=== PATIENT | female | born 1965 | race African-American/Black ===

== ENCOUNTER 2017-04-02 12:46 | Emergency (ER) | payer BC ==
[2017-04-02 12:53] VITALS: BP 144/93
[2017-04-02] MEDS ORDERED: CLINDAMYCIN HCL 150 MG CAPSULE PO ONE (13:11)
[2017-04-02] MEDS ORDERED: LIDOCAINE 2% VISCOUS SOLN 20 ML UDCUP PO ONE (13:11)
--- NOTE | 2017-04-02 13:20 | ER Document Report ---
ED Oral Problem - General Chief Complaint: Toothache Stated Complaint: TOOTHACHE Time Seen by Provider: 04/02/17 13:02 Mode of Arrival: Ambulatory Information source: Patient Notes: 51-year-old female presents to ED for a pain in her tooth #15 for several days. Much worse today states she called around to multiple dentist and could not get seen today in her primary dentist told her to come to the emergency room because they would could see her next week. There is a large portion of tooth # 15 that has been broken off TRAVEL OUTSIDE OF THE U.S. IN LAST 30 DAYS: No - HPI Patient complains to provider of: Toothache Onset: Other Onset: Gradual - Several days Severity: Severe Pain Level: 5 Associated symptoms: Toothache Worsened by: Cold Relieved by: Nothing Similar symptoms previously: Yes Recently seen / treated by doctor/dentist: No - Related Data Allergies/Adverse Reactions: Penicillins Allergy (Severe, Verified 04/02/17 12:51) Shortness of Breath Past Medical History - General Information source: Patient - Social History Smoking Status: Never Smoker Cigarette use (# per day): No Chew tobacco use (# tins/day): No Smoking Education Provided: No Frequency of alcohol use: None Drug Abuse: None Lives with: Family Family History: DM, Hypertension Patient has suicidal ideation: No Patient has homicidal ideation: No - Past Medical History Cardiac Medical History: Reports: Hx Hypertension Pulmonary Medical History: Reports: None EENT Medical History: Reports: None Neurological Medical History: Reports: None Renal/ Medical History: Denies: Hx Peritoneal Dialysis GI Medical History: Reports: Hx Gastroesophageal Reflux Disease Past Surgical History: Reports: Hx Breast Surgery - reduction, Hx Section, Hx Orthopedic Surgery - L foot - Immunizations Hx Diphtheria, Pertussis, Tetanus Vaccination: - unk Physical Exam - Vital signs Vitals: Temp Pulse Resp BP Pulse Ox 98.6 F 104 H 24 H 144/93 H 97 04/02/17 12:52 04/02/17 12:52 04/02/17 12:52 04/02/17 12:52 04/02/17 12:52 Interpretation: Normal - General General appearance: Appears well, Alert - HEENT Head: Normocephalic, Atraumatic Eyes: Normal Pupils: PERRL Ears: Normal External canal: Normal Tympanic membrane: Normal Sinus: Normal Nasal: Normal Mouth/Lips: Caries Mucous membranes: Normal Teeth diagram: 1 - Tooth #15 has a large part of the tooth missing with an exposed nerve Pharynx: Normal Neck: Normal - Respiratory Respiratory status: No respiratory distress Chest status: Nontender Breath sounds: Normal Chest palpation: Normal - Cardiovascular Rhythm: Regular Heart sounds: Normal auscultation Murmur: No - Abdominal Inspection: Normal Distension: No distension Bowel sounds: Normal Tenderness: Nontender Organomegaly: No organomegaly - Back Back: Normal, Nontender - Extremities General upper extremity: Normal inspection, Nontender, Normal color, Normal ROM , Normal temperature General lower extremity: Normal inspection, Nontender, Normal color, Normal ROM , Normal temperature, Normal weight bearing. No: Syed's sign - Neurological Neuro grossly intact: Yes Cognition: Normal Orientation: AAOx4 Mona Coma Scale Eye Opening: Spontaneous Halls Coma Scale Verbal: Oriented Mona Coma Scale Motor: Obeys Commands Halls Coma Scale Total: 15 Speech: Normal Motor strength normal: LUE, RUE, LLE, RLE Sensory: Normal - Psychological Associated symptoms: Normal affect, Normal mood - Skin Skin Temperature: Warm Skin Moisture: Dry Skin Color: Normal Course - Vital Signs Vital signs: Temp Pulse Resp BP Pulse Ox 98.6 F 104 H 24 H 144/93 H 97 04/02/17 12:52 04/02/17 12:52 04/02/17 12:52 04/02/17 12:52 04/02/17 12:52 Discharge - Discharge Clinical Impression: Pain due to dental caries Condition: Stable Disposition: HOME, SELF-CARE Additional Instructions: TOOTHACHE: Your pain is due to dental decay. The tooth must be repaired in order for you to feel better. You will, therefore, be referred to a dentist. We do not have dentists on the staff at [facility]. Severe swelling or drainage around a tooth usually means a dental abscess. This also requires evaluation and treatment by the dentist, but antibiotics may be prescribed while awaiting dental treatment. You should be rechecked immediately if you develop major swelling of the face, increasing pain, a lump in the jaw or gums, headache, difficulty swallowing, or fever. CLINDAMYCIN: You have been given a prescription for the antibiotic clindamycin. It is often prescribed for infections in the mouth, such as dental infections or abscesses, and for skin infections due to MRSA. It's important that you take all the medication, unless instructed otherwise by your physician. Failure to complete the entire course can result in relapse of your condition. Common side effects of antibiotics include nausea, intestinal cramping, or diarrhea. Women may develop vaginal yeast infections, and babies can get yeast (thrush) in the mouth following the use of antibiotics. Contact your physician if you develop significant side effects from this medication. Allergy to this antibiotic can result in hives, wheezing, faintness, or itching. If symptoms of allergy occur, stop the medication and call the doctor. You were given lidocaine and a 20 cc syringe. You can apply a small amount of this to your tooth and gums surrounding the tooth every 3-4 hours. When you go home today, apply a small amount of the lidocaine to the tooth wait a minute then dry the tooth well with a Q-tip of 4 x 4 and apply the putty as I have extracted instructed you to to cover the exposed nerve. Do not smoke chew gum or suck on anything in this area until you follow-up with the dentist and this will keep the exposed nerve covered. Take the clindamycin 4 times a day to prevent any infection until you get seen by the dentist. FOLLOW-UP CARE: You have been referred for follow-up care to the dentists listed below. Call the dentists office for an appointment as you were instructed or within the next two days. If you experience worsening or a significant change in your symptoms, notify the physician immediately or return to the Emergency Department at any time for re-evaluation. [facility] [address] [place], [place] Wednesday mornings, by appointment [facility] [address] [place] [address] [facility] [address] [facility]. [facility] [address] [facility] [address] [facility].. [email or web address] [address] [place] [address] Wednesday- 8:00am to 5:00 pm Will see [facility] other [facility]. Charges based on income and family size and accepts Medicare, Medicaid, and Insurances Will pull molars [facility] [address] Hours of Operation 8:00 am - 4:30 pm weekdays The following dental offices accept Medicaid: [facility] Dr. Sapp Dr. Torres Dr. Whitney Dr. Sierra Marcin Olvera Lutsavage, and [place] [facility] Dr. Lopez ([place]) Dr. Quezada ([place]) [facility] Drs. Jorgensen and Baldev ([place]) Dr. Mobley ([place]) [facility] Dr. Chisholm ([place]) Drs. aCrl and ([place]) Medicaid Care Line Prescriptions: Clindamycin HCl [Cleocin 150 mg Capsule] 150 mg PO Q6 #40 capsule Forms: Elevated Blood Pressure
== END 2017-04-02 13:22 | disposition home or self-care (01) ==
LOC: ER 12:46
DX: K02.9 Dental caries, unspecified (principal); K08.89 Other specified disorders of teeth and supporting structures; I10 Essential (primary) hypertension; Z88.0 Allergy status to penicillin
CPT/HCPCS: 99282; J3490

== ENCOUNTER 2017-04-04 07:27 | Emergency (ER) | payer BC ==
[2017-04-04 07:38] VITALS: BP 152/84
--- NOTE | 2017-04-04 07:58 | ER Document Report ---
HPI - HPI Pain Level: 5 Notes: Patient is a 51-year-old female with no significant past medical history presents the ED complaining of dental pain to #15 and left-sided swelling of her cheek overall 3-4 days. Patient states that she was evaluated here 2 days ago and was given clindamycin 150 mg 4 times daily prescription. Patient states that she is taking 1-1/2 days worth of antibiotics with minimal relief. She has been using snxn-jbr-envpuah meds to help with her pain. She has not noticed any obvious abscess or discharge to her mouth. She still able to eat and drink without any difficulties. She has no trouble swallowing or breathing. Patient is scheduled to see the dentist tomorrow, but is not sure if the dentist will do anything with the swelling. Patient has an allergy to penicillins (rash). Denies any headache, fever, neck pain/stiffness, URI, sore throat, chest pain, palpitations, syncope, cough, shortness of breath, wheeze, dyspnea, abdominal pain, nausea/vomiting/diarrhea, urinary retention, dysuria, hematuria, or rash. - ROS Notes: REVIEW OF SYSTEMS: CONSTITUTIONAL : Denies fever, chills, or sweats. Denies recent illness. EENT: see hpi. No eye complaints. CARDIOVASCULAR: Denies chest pain. Denies palpitations or racing or irregular heart beat. Denies ankle edema. RESPIRATORY: Denies cough, cold, or chest congestion. Denies shortness of breath, difficulty breathing, or wheezing. GASTROINTESTINAL: Denies abdominal pain or distention. Denies nausea, vomiting , or diarrhea. Denies blood in vomitus, stools, or per rectum. Denies black, tarry stools. Denies constipation. GENITOURINARY: Denies difficulty urinating, painful urination, burning, frequency, blood in urine, or discharge. MUSCULOSKELETAL: Denies back or neck pain or stiffness. Denies joint pain or swelling. SKIN: Denies rash, lesions or sores. NEUROLOGICAL: Denies confusion or altered mental status. Denies passing out or loss of consciousness. Denies dizziness or lightheadedness. Denies headache. Denies weakness or paralysis or loss of use of either side. Denies problems with gait or speech. Denies sensory loss, numbness, or tingling. ALL OTHER SYSTEMS REVIEWED AND NEGATIVE. Dictation was performed using Dragon voice recognition software - REPRODUCTIVE Reproductive: DENIES: : - DERM Skin Color: Normal Past Medical History - Social History Smoking Status: Never Smoker Chew tobacco use (# tins/day): No Frequency of alcohol use: None Drug Abuse: None Family History: DM, Hypertension - Past Medical History Cardiac Medical History: Reports: Hx Hypertension Renal/ Medical History: Denies: Hx Peritoneal Dialysis GI Medical History: Reports: Hx Gastroesophageal Reflux Disease Past Surgical History: Reports: Hx Breast Surgery - reduction, Hx Section - x2, Hx Orthopedic Surgery - L foot, R Knee x 2 - Immunizations Hx Diphtheria, Pertussis, Tetanus Vaccination: - unk Vertical Provider Document - CONSTITUTIONAL Agree With Documented VS: Yes Notes: PHYSICAL EXAMINATION: GENERAL: Well-appearing, well-nourished and in no acute distress. HEAD: Atraumatic, normocephalic. EYES: Pupils equal round and reactive to light, extraocular movements intact, sclera anicteric, conjunctiva are normal. ENT: EAC clear b/l. TM's intact b/l without erythema, fluid, or perforation. Nares patent and without discharge. oropharynx clear without exudates. No tonsilar hypertrophy or erythema. Moist mucous membranes. No sinus tenderness. Uvula midline. No palatine shift. No tongue protrusion. No respiratory compromise. Mouth: Poor dentition. + mild decay and mild gingivitis. No obvious abscess or discharge noted. + tenderness to tooth #15. + mild left sided facial swelling. NECK: Normal range of motion, supple without lymphadenopathy. No rigidity/ meningismus. LUNGS: Breath sounds clear to auscultation bilaterally and equal. No wheezes rales or rhonchi. HEART: Regular rate and rhythm without murmurs, rubs, gallops. NEUROLOGICAL: Cranial nerves grossly intact. Normal speech, normal gait. Normal sensory, motor exams PSYCH: Normal mood, normal affect. SKIN: Warm, Dry, normal turgor, no rashes or lesions noted. - INFECTION CONTROL TRAVEL OUTSIDE OF THE U.S. IN LAST 30 DAYS: No - RESPIRATORY O2 Sat by Pulse Oximetry: 98 Course - Re-evaluation Re-evalutation: 04/04/17 07:55 Patient is an afebrile, well-hydrated, 51-year-old female presents to the ED with dental pain and infection. Vitals are stable. PE otherwise unremarkable. Low suspicion for any meningitis, sepsis, peritonsillar/pharyngeal abscess, respiratory compromise, Mahendra's, temporal arteritis, or other emergent systemic condition at this time. Patient is aware this condition can change from initial presentation and she needs to monitor symptoms closely. I will increase her clindamycin dose to 300 mg 4 times daily for 10 days. Conservative measures otherwise for symptoms. Keep appointment with your dentist for further evaluation and management. Recheck with your PCM this week as well. Return to the ED with any worsening/concerning symptoms otherwise as reviewed in discharge. Patient is in agreement. - Vital Signs Vital signs: Temp Pulse Resp BP Pulse Ox 98.4 F 105 H 20 152/84 H 98 04/04/17 07:31 04/04/17 07:31 04/04/17 07:31 04/04/17 07:31 04/04/17 07:31 Discharge - Discharge Clinical Impression: Dental infection Condition: Stable Disposition: HOME, SELF-CARE Instructions: Toothache ([facility]), Clindamycin ([facility]), [facility] Additional Instructions: [place] and floss twice daily Maintain fluid intake Take antibiotics as directed Mouthwash, salt water gargles, peroxide rinse as needed Tylenol/ibuprofen as needed Recheck with PCM this week Call today/tomorrow and schedule an appointment with your dentist for further evaluation Return to the ED with any worsening symptoms and/or development of fever, headache, facial swelling, swelling of lips/tongue/throat, trouble swallowing, drooling, hoarseness, neck pain/stiffness, chest pain, palpitations, syncope, shortness of breath, trouble breathing, abdominal pain, n/v/d, numbness/tingling , or other worsening symptoms that are concerning to you. Prescriptions: Clindamycin HCl [Cleocin 300 mg Capsule] 300 mg PO QID #28 capsule Forms: Elevated Blood Pressure Referrals: [facility] [Provider Group] - Follow up as needed
== END 2017-04-04 08:02 | disposition home or self-care (01) ==
LOC: ER 07:27
DX: K04.7 Periapical abscess without sinus (principal); I10 Essential (primary) hypertension; K21.9 Gastro-esophageal reflux disease without esophagitis; Z88.0 Allergy status to penicillin
CPT/HCPCS: 99282

== ENCOUNTER → 2017-08-27 | Outpatient (CLI) | payer BC ==
--- NOTE | 2017-08-27 07:47 | WOMENS IMAGING REPORT ---
EXAM DESCRIPTION: BILAT SCREENING MAMMO W/CAD COMPLETED DATE/TIME: 08/27/2017 7:27 am REASON FOR STUDY: SCREENING MAMMO Z12.31 ENCNTR SCREEN MAMMOGRAM FOR MALIGNANT NEOPLASM OF CASTRO COMPARISON: No previous, old films are greater than 10 years ago TECHNIQUE: Standard craniocaudal and mediolateral oblique views of each breast recorded using PadProofa l acquisition. LIMITATIONS: None. FINDINGS: Findings present which are benign by mammographic criteria. No suspicious masses, calcifi cations or architectural distortion. Pertinent benign findings: Coarse benign calcifications right breast. Asymmetrically dense breast parenchyma in the upper outer quadrant left breast. Postsurgical changes from breast reduction bilaterally. Read with the assistance of CAD. .[facility] - R2 Cenova Version 1.3 .[facility] Imaging - R2 Cenova Version 1.3 .[facility] Imaging - R2 Cenova Version 2.4 .[facility] - R2 Cenova Version 2.4 .[facility] - R2 [employer] Sales Representative Version 9.2 Benign mammographic findings may include one or more of the following: Smooth masses, popcorn/rim/co arse calcifications, asymmetries, post-procedure changes, and lesions with long-standing stability. IMPRESSION: BENIGN MAMMOGRAPHIC FINDINGS. BIRADS 2 BREAST DENSITY: b. There are scattered areas of fibroglandular density. BIRAD: 2 BENIGN FINDING(S) RECOMMENDATION: ROUTINE SCREENING Please consider bilateral screening tomosynthesis in August 2018 COMMENT: The patient has been notified of the results by letter per SA requirements. Additional no tification policies are in place for contacting patient with suspicious or incomplete findings. Quality ID #[id number]: The [employer] recommends an annual screening mammogram for women aged 40 years or over. This facility utilizes a reminder system to ensure that all patients receive reminder letters, and/or direct phone calls for appointments. This includes reminders for routine scr eening mammograms, diagnostic mammograms, or other Breast Imaging Interventions when appropriate. Th is patient will be placed in the appropriate reminder system. The [employer] (ACR) has developed recommendations for screening MRI of the breast s in certain patient populations, to be used in conjunction with mammography. Breast MRI surveillanc e may be appropriate for women with more than 20% lifetime risk of developing breast cancer as deter mined by genetic testing, significant family history of the disease, or history of mantle radiation f or Hodgkins Disease. ACR Practice Guidelines 2008. TECHNICAL DOCUMENTATION: FINDING NUMBER: (1) ASSESSMENT: (1) JOB ID: [id number] [email or web address]- All Rights Reserved
== END ==
LOC: WI 06:52
PROVIDERS: ATTEND Student in an Organized Health Care Education/Training Program
DX: Z12.31 Encounter for screening mammogram for malignant neoplasm of breast (principal)
CPT/HCPCS: 77067

== ENCOUNTER 2018-05-08 13:38 | Emergency (ER) | payer OTHER, BC ==
[2018-05-08 13:52] VITALS: BP 147/69
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
[2018-05-08 16:30] LABS: ABSOLUTE BASOPHILS # (AUTO) 0.2 10^3/uL (0.0-0.2); ABSOLUTE EOSINOPHILS # (AUTO) 0.2 10^3/uL (0.0-0.6); ABSOLUTE LYMPHOCYTES (AUTO) 3.8 10^3/uL (0.5-4.7); ABSOLUTE MONOCYTES (AUTO) 0.7 10^3/uL (0.1-1.4); ABSOLUTE NEUT (AUTO) 7.1 10^3/uL (1.7-8.2); BASOPHILS % (AUTO) 1.3 % (0-2); EOSINOPHILS % (AUTO) 1.9 % (0-6); HEMATOCRIT 35.7 % (36.0-47.0); HEMOGLOBIN 11.2 g/dL (12.0-15.5); LYMPHOCYTES % (AUTO) 31.6 % (13-45); MEAN CORPUSCULAR HEMOGLOBIN 22.6 pg (27.0-33.4); MEAN CORPUSCULAR HGB CONC 31.3 g/dL (32.0-36.0); MEAN CORPUSCULAR VOLUME 72 fl (80-97); MONOCYTES % (AUTO) 6.1 % (3-13); PLATELET COUNT 322 10^3/uL (150-450); RED BLOOD COUNT 4.95 10^6/uL (3.72-5.28); RED CELL DISTRIBUTION WIDTH 18.2 % (11.5-14.0); SEGMENTED NEUTROPHILS % (AUTO) 59.1 % (42-78); TOTAL CELLS COUNTED % (AUTO) 100 %
[2018-05-08 16:48] LABS: ANION GAP 11 (5-19); BLOOD UREA NITROGEN 10 mg/dL (7-20); CALCIUM 9.1 mg/dL (8.4-10.2); CARBON DIOXIDE 26 mmol/L (22-30); CHLORIDE 104 mmol/L (98-107); GLUCOSE 111 mg/dL (75-110); POTASSIUM 4.3 mmol/L (3.6-5.0); SODIUM 140.7 mmol/L (137-145)
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
[2018-05-08] MEDS ORDERED: ACETAMINOPHEN 325 MG TABLET PO ONE (18:02)
[2018-05-08] MEDS ORDERED: IBUPROFEN 600 MG TABLET PO ONE (18:02)
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
--- NOTE | 2018-05-08 18:05 | RADIOLOGY REPORT (SQ) ---
EXAM DESCRIPTION: CT CHEST WITH COMPLETED DATE/TIME: 05/08/2018 5:39 pm REASON FOR STUDY: trauma COMPARISON: None. TECHNIQUE: CT scan of the chest performed using helical scanning technique with dynamic intravenous contrast injection. Images reviewed with lung, soft tissue and bone windows. Reconstructed coronal and sagittal MPR and MIP images reviewed. All images stored on PACS. All CT scanners at this facility use dose modulation, iterative reconstruction, and/or weight based d osing when appropriate to reduce radiation dose to as low as reasonably achievable (ALARA). [facility]: Dose Right [facility]: CareDose [facility]: Dose Right [facility]: Teradose 4D [facility]: DLS CONTRAST TYPE AND DOSE: contrast/concentration: Isovue 350.00 mg/ml; Total Contrast Delivered: 59.3 ml; Total Saline Delivered: 22.0 ml RENAL FUNCTION: GFR > 60. RADIATION DOSE: CT Rad equipment meets quality standard of care and radiation dose reduction techniq ues were employed. CTDIvol: 9.6 - 14.4 mGy. DLP: 1500 mGy-cm. . LIMITATIONS: Body habitus. FINDINGS: LUNGS AND PLEURA: No opacities, nodules, masses. No pneumothorax. No effusions. HILAR AND MEDIASTINAL STRUCTURES: No identified masses or abnormal nodes. HEART AND VASCULAR STRUCTURES: Cardiomegaly. No aneurysm or dissection. No central pulmonary emboli . No pericardial effusion. HARDWARE: None in the chest. UPPER ABDOMEN: See separate report of the CT of the abdomen. THYROID AND OTHER SOFT TISSUES: No masses. No adenopathy. BONES: No significant finding. OTHER: No other significant finding. IMPRESSION: No acute findings in the chest TECHNICAL DOCUMENTATION: JOB ID: [id number] Quality ID # [id number]: Final reports with documentation of one or more dose reduction techniques (e.g., Au tomated exposure control, adjustment of the mA and/or kV according to patient size, use of iterative reconstruction technique) 2010 [employer]- All Rights Reserved Reading location - IP/workstation name: [email or web address]
--- NOTE | 2018-05-08 18:08 | RADIOLOGY REPORT (SQ) ---
EXAM DESCRIPTION: CT ABD/PELVIS WITH IV ORAL COMPLETED DATE/TIME: 05/08/2018 5:39 pm REASON FOR STUDY: trauma series COMPARISON: None. TECHNIQUE: CT scan of the abdomen and pelvis performed using helical scanning technique with dynamic intravenous contrast injection. Oral contrast. Images reviewed with lung, soft tissue, and bone win dows. Reconstructed coronal and sagittal MPR images reviewed. Delayed images for evaluation of the ur inary system also acquired. All images stored on PACS. All CT scanners at this facility use dose modulation, iterative reconstruction, and/or weight based d osing when appropriate to reduce radiation dose to as low as reasonably achievable (ALARA). [facility]: Dose Right [facility]: CareDose [facility]: Dose Right [facility]: Teradose 4D [facility]: Smart [employer] CONTRAST TYPE AND DOSE: See separate report of the same date. RENAL FUNCTION: See separate report of same date. RADIATION DOSE: . LIMITATIONS: None. FINDINGS: LOWER CHEST: Hiatal hernia. LIVER: Normal size. No masses. No dilated ducts. SPLEEN: Normal size. No focal lesions. PANCREAS: No masses. No significant calcifications. No adjacent inflammation or peripancreatic fluid collections. Pancreatic duct not dilated. GALLBLADDER: No identified stones by CT criteria. No inflammatory changes to suggest cholecystitis. ADRENAL GLANDS: No significant masses or asymmetry. RIGHT KIDNEY AND URETER: No solid masses. No significant calcifications. No hydronephrosis or hyd roureter. LEFT KIDNEY AND URETER: No solid masses. No significant calcifications. No hydronephrosis or hydr oureter. AORTA AND VESSELS: No aneurysm. No dissection. Renal arteries, SMA, celiac without stenosis. RETROPERITONEUM: No retroperitoneal adenopathy, hemorrhage or masses. BOWEL AND PERITONEAL CAVITY: No masses or inflammatory changes. No free fluid or peritoneal masses. APPENDIX: Normal. PELVIS: No mass. No free fluid. Normal bladder. ABDOMINAL WALL: No masses. No hernias. BONES: No acute findings. OTHER: No other significant finding. IMPRESSION: No acute findings. TECHNICAL DOCUMENTATION: JOB ID: [id number] Quality ID # [id number]: Final reports with documentation of one or more dose reduction techniques (e.g., Au tomated exposure control, adjustment of the mA and/or kV according to patient size, use of iterative reconstruction technique) 2010 [employer]- All Rights Reserved Reading location - IP/workstation name: [email or web address]
== END 2018-05-08 18:45 | disposition home or self-care (01) ==
LOC: ER 13:38
DX: S29.012A Strain of muscle and tendon of back wall of thorax, initial encounter (principal); S20.219A Contusion of unspecified front wall of thorax, initial encounter; S30.1XXA Contusion of abdominal wall, initial encounter; R51 Headache; M54.9 Dorsalgia, unspecified; I10 Essential (primary) hypertension; V87.7XXA Person injured in collision between other specified motor vehicles (traffic), initial encounter
CPT/HCPCS: 36415; 70450; 71260; 72125; 74177; 80048; 85025; 99284

== ENCOUNTER 2018-11-05 15:52 | Emergency (ER) | payer OTHER ==
--- NOTE | 2018-11-05 16:13 | ER Document Report ---
ED Medical Screen (RME) - General Chief Complaint: Chest Pain Stated Complaint: CHEST PAIN Time Seen by Provider: 11/05/18 16:05 Primary Care Provider: KYLER MORENO DO [Primary Care Provider] - Follow up as needed Mode of Arrival: Ambulatory Information source: Patient Notes: Patient is a 52-year-old female with past medical history of hypertension and acid reflux who presents to the emergency department with multiple complaints. Patient is complaining of chest pain that is intermittent and varies in location. She is unable to describe what this pain feels like. She does report associated nausea with vomiting. She denies any shortness of breath or diaphoresis. Patient also complains of bilateral lower extremity pain and tightness. She denies any history of CHF or peripheral edema. Patient states she was recently diagnosed with type 2 diabetes, states they have not started her on medication for this. Exam: Patient alert, answering all questions, tearful. Unable to reproduce chest pain with palpation. Lung sounds are clear and equal bilaterally. I have greeted and performed a rapid initial assessment of this patient. A comprehensive ED assessment and evaluation of the patient, analysis of test results and completion of the medical decision making process will be conducted by additional ED providers. Dictation of this chart was performed using voice recognition software; therefore, there may be some unintended grammatical errors. TRAVEL OUTSIDE OF THE [place] IN LAST 30 DAYS: No - Related Data Allergies/Adverse Reactions: Penicillins Allergy (Severe, Verified 11/05/18 15:54) Shortness of Breath Past Medical History - Social History Chew tobacco use (# tins/day): No Frequency of alcohol use: None Drug Abuse: None - Past Medical History Cardiac Medical History: Reports: Hx Hypertension Endocrine Medical History: Reports: Hx Diabetes Mellitus Type 2 Renal/ Medical History: Denies: Hx Peritoneal Dialysis GI Medical History: Reports: Hx Gastroesophageal Reflux Disease Past Surgical History: Reports: Hx Breast Surgery - reduction, Hx Section - x2, Hx Orthopedic Surgery - L foot, R Knee x 2 - Immunizations Hx Diphtheria, Pertussis, Tetanus Vaccination: - unk Physical Exam - Vital signs Vitals: Temp Pulse Resp BP Pulse Ox 98.5 F 101 H 18 145/89 H 97 11/05/18 16:04 11/05/18 16:04 11/05/18 16:04 11/05/18 16:04 11/05/18 16:04 Course - Vital Signs Vital signs: Temp Pulse Resp BP Pulse Ox 98.5 F 101 H 18 145/89 H 97 11/05/18 16:04 11/05/18 16:04 11/05/18 16:04 11/05/18 16:04 11/05/18 16:04 Doctor's Discharge - Discharge Referrals: KYLER MORENO, [Primary Care Provider] - Follow up as needed
[2018-11-05 17:25] LABS: ABSOLUTE BASOPHILS # (AUTO) 0.1 10^3/uL (0.0-0.2); ABSOLUTE EOSINOPHILS # (AUTO) 0.2 10^3/uL (0.0-0.6); ABSOLUTE LYMPHOCYTES (AUTO) 3.4 10^3/uL (0.5-4.7); ABSOLUTE MONOCYTES (AUTO) 0.8 10^3/uL (0.1-1.4); ABSOLUTE NEUT (AUTO) 8.2 10^3/uL (1.7-8.2); BASOPHILS % (AUTO) 1.1 % (0-2); EOSINOPHILS % (AUTO) 1.8 % (0-6); HEMOGLOBIN 9.4 g/dL (12.0-15.5); LYMPHOCYTES % (AUTO) 26.5 % (13-45); MEAN CORPUSCULAR HEMOGLOBIN 20.7 pg (27.0-33.4); MEAN CORPUSCULAR HGB CONC 31.3 g/dL (32.0-36.0); MEAN CORPUSCULAR VOLUME 66 fl (80-97); MONOCYTES % (AUTO) 6.6 % (3-13); PLATELET COUNT 347 10^3/uL (150-450); RED BLOOD COUNT 4.54 10^6/uL (3.72-5.28); RED CELL DISTRIBUTION WIDTH 19.3 % (11.5-14.0); TOTAL CELLS COUNTED % (AUTO) 100 %; WHITE BLOOD COUNT 12.7 10^3/uL (4.0-10.5)
[2018-11-05] MEDS ORDERED: IPRATROPIUM/ALBUTEROL 0.5-2.5 MG/3 ML AMPUL NEB ONE (17:31)
[2018-11-05] MEDS ORDERED: KETOROLAC TROMETHAMINE INJ/PF 30 MG/1 ML SDV IV ONE (17:31)
[2018-11-05 17:33] LABS: ALANINE AMINOTRANSFERASE 23 U/L (9-52); ALBUMIN 3.8 g/dL (3.5-5.0); ALKALINE PHOSPHATASE 109 U/L (38-126); ANION GAP 6 (5-19); ASPARTATE AMINO TRANSFERASE 13 U/L (14-36); BILIRUBIN,DIRECT 0.3 mg/dL (0.0-0.4); BILIRUBIN,TOTAL 0.3 mg/dL (0.2-1.3); BLOOD UREA NITROGEN 10 mg/dL (7-20); CARBON DIOXIDE 29 mmol/L (22-30); CHLORIDE 104 mmol/L (98-107); GLUCOSE 155 mg/dL (75-110); POTASSIUM 4.1 mmol/L (3.6-5.0); SODIUM 139.4 mmol/L (137-145); TOTAL PROTEIN 6.9 g/dL (6.3-8.2)
--- NOTE | 2018-11-05 17:41 | ER Document Report ---
ED Cardiac - General Chief Complaint: Chest Pain Stated Complaint: CHEST PAIN Time Seen by Provider: 11/05/18 16:05 Primary Care Provider: KYLER MORENO DO [Primary Care Provider] - Follow up as needed Mode of Arrival: Ambulatory TRAVEL OUTSIDE OF THE [place] IN LAST 30 DAYS: No - HPI Patient complains to provider of: Chest pain, Other - Body aches, leg pain Notes: Patient is here with complaints of multiple things. States that since yesterday she has had generalized body aches with leg pain, chest tightness with some wheezing and cough, and generalized body aches. No fever. No shortness of breath. No history of asthma or COPD. She is a non-smoker. She has a history of type 2 diabetes and hypertension, no history of hyper cholesterolemia, CAD, heart disease. She denies smoking. She denies any recent long trips or surgeries, leg swelling, cancer, hormone use, history of DVT or PE. States that the pain is constant, achy, moderate, nothing makes it better, worse with touching her legs or body or movement. She denies any abdominal pain. No nausea, vomiting, diarrhea. No dysuria hematuria. No rash. She denies any other specific complaints at this time. - Related Data Allergies/Adverse Reactions: Penicillins Allergy (Severe, Verified 11/05/18 15:54) Shortness of Breath Past Medical History - General Information source: Patient - Social History Smoking Status: Current Some Day Smoker Chew tobacco use (# tins/day): No Frequency of alcohol use: None Drug Abuse: None Family History: DM, Hypertension Patient has suicidal ideation: No Patient has homicidal ideation: No - Past Medical History Cardiac Medical History: Reports: Hx Hypertension Endocrine Medical History: Reports: Hx Diabetes Mellitus Type 2 Renal/ Medical History: Denies: Hx Peritoneal Dialysis GI Medical History: Reports: Hx Gastroesophageal Reflux Disease Past Surgical History: Reports: Hx Breast Surgery - reduction, Hx Section - x2, Hx Orthopedic Surgery - L foot, R Knee x 2 - Immunizations Hx Diphtheria, Pertussis, Tetanus Vaccination: - unk Review of Systems - Review of Systems -: Yes All other systems reviewed and negative Physical Exam - Vital signs Vitals: Temp Pulse Resp BP Pulse Ox 98.5 F 101 H 18 145/89 H 97 11/05/18 16:04 11/05/18 16:04 11/05/18 16:04 11/05/18 16:04 11/05/18 16:04 - Notes Notes: GENERAL: alert, cooperative, nontoxic, no distress. HEAD: normocephalic, atraumatic EYES: conjunctiva pink without discharge, no external redness or swelling. EARS: no external swelling, no external redness, no mastoid redness, swelling, tenderness. Ear canals are clear without swelling or drainage. TMs pearly oreilly, no redness, no bulging, normal landmarks, no perforation. NOSE: atraumatic, no external swelling. clear rhinorrhea noted. MOUTH/THROAT: mucous membranes moist and pink, posterior pharynx without erythe ma, swelling, exudate. No trismus or drooling. NECK: soft, supple, full range of motion, no meningismus. CHEST: no distress, lungs clear and equal throughout. Wheezing noted in the right lower lobe. Otherwise good air movement, no crackles. CARDIAC: regular rate and rhythm, no murmur, normal capillary refill, normal pulses. No peripheral edema noted. BACK: full range of motion, no CVA tenderness. EXTREMITIES: full range of motion of all extremities. Trace pitting edema to the bilateral extremities with mild tenderness to palpation to the anterior legs. No redness or mass. Normal pulse and sensation. NEURO: alert and oriented A&O3, no focal deficits, full range of motion of all extremities. PYSCH: appropriate mood, affect. Patient is cooperative. SKIN: pink, warm, dry, no rash. Course - Re-evaluation Re-evalutation: 11/05/18 19:23 Heart score is 3, making her low risk for MACE. 11/05/18 19:24 Offered to order a venous Doppler of the bilateral lower extremities since the patient states she is having pain and has trace edema, she declined. She has no DVT or PE risk factors at this time. Patient states she has an appointment with her primary care doctor she would prefer to have these tests done with her [facility] doctor. 11/05/18 19:25 Breath sounds improved with bronchitic cough noted. 11/05/18 20:12 Patient is nontoxic-appearing stable vitals. Patient here with complaints of some body aches, leg pain for the last few weeks, cough and some mild chest pressure and pain in the chest with cough. On exam she has some wheezing and has a bronchitic cough. EKG is negative for any acute findings. Heart score is 3. Troponin is negative. The remainder of her labs are remarkable. Chest x- ray shows cardiomegaly without signs of effusion, failure, pneumonia. The patient states that she knows that her heart is enlarged. She has no PE risk factors. Patient most likely having sort of viral illness causing her myalgias and bronchitis. Influenza screen was negative. I offered venous Doppler of the bilateral lower extremities, the patient declined stating she would rather do this with her primary care doctor. Patient was given breathing treatments with improvement here. She will be given prednisone, albuterol, Hycodan to take as needed for Cerner symptoms. She is instructed to follow-up with her primary care doctor at the next available appointment. Return to emergency department or follow-up sooner for any worsening symptoms, high fever, persistent vomiting, worsening pain, or for any further concerns. At this point the patient's repeat troponin is running. If this is negative, the patient will be discharged home. If this is positive, the patient will require further evaluation and admission to the hospital. Oncoming provider will watch for repeat troponin results, if n egative, they can be placed up for discharge. The patient's emergency department workup and current diagnosis were explained to the patient and or family. Follow-up instructions were provided. Medi cations if prescribed were discussed. Instructions for when to return to the emergency department including specific worrisome symptoms were discussed with the patient and/or family. - Vital Signs Vital signs: Temp Pulse Resp BP Pulse Ox 98.5 F 101 H 17 155/85 H 97 11/05/18 16:04 11/05/18 16:04 11/05/18 17:04 11/05/18 17:04 11/05/18 17:04 - Laboratory Result Diagrams: 11/05/18 17:08 11/05/18 17:08 Laboratory results interpreted by me: 11/05/18 11/05/18 17:08 17:08 WBC 12.7 H Hgb 9.4 L Hct 30.0 L MCV 66 L MCH 20.7 L MCHC 31.3 L RDW 19.3 H Est GFR (Non-Af Amer) 58 L Glucose 155 H AST 13 L - Diagnostic Test Radiology reviewed: Image reviewed, Reports reviewed - Cardiomegaly, no acute findings. - EKG Interpretation by Me EKG shows normal: Sinus rhythm, [place], Intervals, QRS Complexes, ST-T Waves Rate: Normal When compared to previous EKG there are: Other - Rate 97, no ST elevation or depression. No STEMI. Discharge - Discharge Clinical Impression: Bronchitis, Myalgia Chest pain Qualifiers: Chest pain type: unspecified Qualified Code(s): R07.9 - Chest pain, unspecified Condition: Stable Disposition: HOME, SELF-CARE Instructions: Chest Pain of Unclear Cause ([facility]), Bronchitis ([facility]) Additional Instructions: Take medications as prescribed. Follow-up with your primary care doctor at the next available appointment. Follow-up sooner for increased pain, fever, difficulty breathing or swallowing, persistent vomiting, or for any further concerns. Prescriptions: Hydrocodone Bit/Homatropine [Hycodan Syrup 5-1.5 mg/5 ml Ud Cup] 5 ml PO Q4HP PRN #120 ml PRN Reason: Albuterol Sulfate [Proair HFA Inhalation Aerosol 8.5 gm MDI] 2 puff IH Q4H PRN #1 mdi PRN Reason: Prednisone [Deltasone 20 mg Tablet] 3 tab PO DAILY 5 Days tablet Forms: Elevated Blood Pressure Referrals: KYLER MORENO DO [Primary Care Provider] - Follow up as needed
--- NOTE | 2018-11-05 17:41 | RADIOLOGY REPORT (SQ) ---
EXAM DESCRIPTION: CHEST SINGLE VIEW COMPLETED DATE/TIME: 11/05/2018 5:26 pm REASON FOR STUDY: chest pain COMPARISON: None. NUMBER OF VIEWS: One view. TECHNIQUE: Single frontal radiographic view of the chest acquired. LIMITATIONS: None. FINDINGS: LUNGS AND PLEURA: No opacities, masses or pneumothorax. No pleural effusion. MEDIASTINUM AND HILAR STRUCTURES: No masses. Contour normal. HEART AND VASCULAR STRUCTURES: Heart enlarged without failure. Normal vasculature. BONES: No acute findings. HARDWARE: None in the chest. OTHER: No other significant finding. IMPRESSION: HEART ENLARGED WITHOUT FAILURE. NO OTHER SIGNIFICANT RADIOGRAPHIC FINDING IN THE CHEST. TECHNICAL DOCUMENTATION: JOB ID: [id number] [employer]- All Rights Reserved Reading location - IP/workstation name: [email or web address]
[2018-11-05 17:45] LABS: NT PRO BNP 31 pg/mL (5-900)
[2018-11-05 17:46] LABS: TROPONIN I < 0.012 ng/mL
[2018-11-05] MEDS ORDERED: HYDROCODONE/ACETAMINOPHEN 5-325 MG TABLET PO ONE (19:22)
[2018-11-05] MEDS ORDERED: PREDNISONE 20 MG TABLET PO ONE (19:22)
[2018-11-05 19:44] LABS: A TYPE INFLUENZA AG NEGATIVE (NEGATIVE); B INFLUENZA AG NEGATIVE (NEGATIVE)
[2018-11-05 21:06] VITALS: BP 116/83
--- NOTE | 2018-11-06 23:42 | EKG REPORT ---
SEVERITY:- NORMAL ECG - SINUS RHYTHM : Confirmed by: Juan Miguel Gar 06-Nov-2018 23:41:15
== END 2018-11-05 21:00 | disposition home or self-care (01) ==
LOC: ER 15:52
DX: J40 Bronchitis, not specified as acute or chronic (principal); I11.9 Hypertensive heart disease without heart failure; R07.89 Other chest pain; M79.606 Pain in leg, unspecified; M79.10 Myalgia, unspecified site; R60.0 Localized edema; R06.2 Wheezing; R05 Cough; E11.9 Type 2 diabetes mellitus without complications; F17.200 Nicotine dependence, unspecified, uncomplicated; Z88.0 Allergy status to penicillin
CPT/HCPCS: 93005; 94640; 99285; 96374; 36415; 85025; 80053; 84484; 87804; 83880; 71045; 93010; J1885; J7512; J7620

== ENCOUNTER 2019-01-06 18:33 | Emergency (ER) | payer OTHER ==
[2019-01-06] MEDS ORDERED: ONDANSETRON 4 MG TAB.RAPDIS PO ONE (19:06)
--- NOTE | 2019-01-06 19:06 | ER Document Report ---
ED GI/ - General Chief Complaint: Nausea/Vomiting Stated Complaint: BACK PAIN Time Seen by Provider: 01/06/19 19:00 Primary Care Provider: KYLER MORENO DO [Primary Care Provider] - Follow up as needed Mode of Arrival: Ambulatory Information source: Patient TRAVEL OUTSIDE OF THE [place] IN LAST 30 DAYS: No - Related Data Allergies/Adverse Reactions: Penicillins Allergy (Severe, Verified 11/05/18 15:54) Shortness of Breath Past Medical History - Social History Family History: DM, Hypertension - Past Medical History Cardiac Medical History: Reports: Hx Hypertension Endocrine Medical History: Reports: Hx Diabetes Mellitus Type 2 Renal/ Medical History: Denies: Hx Peritoneal Dialysis GI Medical History: Reports: Hx Gastroesophageal Reflux Disease Past Surgical History: Reports: Hx Breast Surgery - reduction, Hx Section - x2, Hx Orthopedic Surgery - L foot, R Knee x 2 - Immunizations Hx Diphtheria, Pertussis, Tetanus Vaccination: - unk Physical Exam - Vital signs Vitals: Temp Pulse Resp BP Pulse Ox 98.4 F 108 H 20 150/76 H 96 01/06/19 18:40 01/06/19 18:40 01/06/19 18:40 01/06/19 18:40 01/06/19 18:40 Course - Vital Signs Vital signs: Temp Pulse Resp BP Pulse Ox 98.4 F 108 H 20 150/76 H 96 01/06/19 18:40 01/06/19 18:40 01/06/19 18:40 01/06/19 18:40 01/06/19 18:40 Discharge - Discharge Referrals: KYLER MORENO DO [Primary Care Provider] - Follow up as needed
[2019-01-06] MEDS ORDERED: HYDROCODONE/ACETAMINOPHEN 5-325 MG TABLET PO ONE (19:07)
--- NOTE | 2019-01-06 19:24 | ER Document Report ---
ED Medical Screen (RME) - General Chief Complaint: Nausea/Vomiting Stated Complaint: BACK PAIN Time Seen by Provider: 01/06/19 19:00 Primary Care Provider: KYLER MORENO DO [Primary Care Provider] - Follow up as needed Mode of Arrival: Ambulatory Information source: Patient Notes: Patient is a 53-year-old female who presents to the ER today for low back pain across the entirety of the low back like a band that started yesterday with no injury, then a few hours later nausea and vomiting that is continued. Patient denies any burning with urination, fever, history of kidney stones, blood in her urine, diarrhea. TRAVEL OUTSIDE OF THE [place] IN LAST 30 DAYS: No - Related Data Allergies/Adverse Reactions: Penicillins Allergy (Severe, Verified 11/05/18 15:54) Shortness of Breath Past Medical History - General Information source: Patient - Past Medical History Cardiac Medical History: Reports: Hx Hypertension Endocrine Medical History: Reports: Hx Diabetes Mellitus Type 2 Renal/ Medical History: Denies: Hx Peritoneal Dialysis GI Medical History: Reports: Hx Gastroesophageal Reflux Disease Past Surgical History: Reports: Hx Breast Surgery - reduction, Hx Section - x2, Hx Orthopedic Surgery - L foot, R Knee x 2 - Immunizations Hx Diphtheria, Pertussis, Tetanus Vaccination: - unk Review of Systems - Review of Systems Gastrointestinal: See HPI Physical Exam - Vital signs Vitals: Temp Pulse Resp BP Pulse Ox 98.4 F 108 H 20 150/76 H 96 01/06/19 18:40 01/06/19 18:40 01/06/19 18:40 01/06/19 18:40 01/06/19 18:40 - Notes Notes: PHYSICAL EXAMINATION: GENERAL: Uncomfortable-appearing and in no acute distress. ABDOMEN: Soft, no tenderness. No guarding, no rebound BACK: Patient will not cooperate with palpation of the back Course - Vital Signs Vital signs: Temp Pulse Resp BP Pulse Ox 98.4 F 108 H 20 150/76 H 96 01/06/19 18:40 01/06/19 18:40 01/06/19 18:40 01/06/19 18:40 01/06/19 18:40 Doctor's Discharge - Discharge Referrals: KYLER MORENO DO [Primary Care Provider] - Follow up as needed
[2019-01-06 19:31] LABS: ABSOLUTE BASOPHILS # (AUTO) 0.1 10^3/uL (0.0-0.2); ABSOLUTE EOSINOPHILS # (AUTO) 0.2 10^3/uL (0.0-0.6); ABSOLUTE LYMPHOCYTES (AUTO) 4.2 10^3/uL (0.5-4.7); ABSOLUTE MONOCYTES (AUTO) 0.7 10^3/uL (0.1-1.4); ABSOLUTE NEUT (AUTO) 8.1 10^3/uL (1.7-8.2); EOSINOPHILS % (AUTO) 1.7 % (0-6); HEMATOCRIT 33.3 % (36.0-47.0); HEMOGLOBIN 10.4 g/dL (12.0-15.5); LYMPHOCYTES % (AUTO) 31.5 % (13-45); MEAN CORPUSCULAR HEMOGLOBIN 21.3 pg (27.0-33.4); MEAN CORPUSCULAR HGB CONC 31.2 g/dL (32.0-36.0); MEAN CORPUSCULAR VOLUME 68 fl (80-97); MONOCYTES % (AUTO) 5.1 % (3-13); PLATELET COUNT 353 10^3/uL (150-450); RED BLOOD COUNT 4.88 10^6/uL (3.72-5.28); RED CELL DISTRIBUTION WIDTH 19.4 % (11.5-14.0); SEGMENTED NEUTROPHILS % (AUTO) 60.7 % (42-78); TOTAL CELLS COUNTED % (AUTO) 100 %; WHITE BLOOD COUNT 13.3 10^3/uL (4.0-10.5)
[2019-01-06 19:31] LABS: APPEARANCE,URINE CLEAR; BILIRUBIN,URINE NEGATIVE (NEGATIVE); COLOR,URINE YELLOW; GLUCOSE, URINE NEGATIVE (NEGATIVE); KETONES,URINE NEGATIVE (NEGATIVE); LEUKOCYTE ESTERASE,URINE NEGATIVE (NEGATIVE); NITRITE,URINE NEGATIVE (NEGATIVE); PROTEIN,URINE NEGATIVE (NEGATIVE); URINE SPECIFIC GRAVITY 1.017; UROBILINOGEN,URINE NEGATIVE mg/dL (<2.0)
[2019-01-06 19:48] LABS: ALANINE AMINOTRANSFERASE 19 U/L (9-52); ALBUMIN 3.7 g/dL (3.5-5.0); ALKALINE PHOSPHATASE 99 U/L (38-126); ANION GAP 5 (5-19); ASPARTATE AMINO TRANSFERASE 17 U/L (14-36); BILIRUBIN,DIRECT 0.2 mg/dL (0.0-0.4); BILIRUBIN,TOTAL 0.2 mg/dL (0.2-1.3); BLOOD UREA NITROGEN 11 mg/dL (7-20); CALCIUM 8.8 mg/dL (8.4-10.2); CARBON DIOXIDE 29 mmol/L (22-30); CHLORIDE 105 mmol/L (98-107); GLUCOSE 181 mg/dL (75-110); POTASSIUM 4.1 mmol/L (3.6-5.0); TOTAL PROTEIN 6.7 g/dL (6.3-8.2)
[2019-01-06] MEDS ORDERED: NORMAL SALINE 1000 ML 1,000 ML IV ONE (21:48)
--- NOTE | 2019-01-06 22:31 | RADIOLOGY REPORT (SQ) ---
EXAM DESCRIPTION: [facility]: CT ABDOMEN PELVIS WITH IV CONTRAST CLINICAL HISTORY: 53 years Female; back pain; nausea/vomiting TECHNIQUE: CT of the abdomen and pelvis using intravenous contrast. All CT scans at this facility use dose modulation, iterative reconstruction, and/or weight based dosing when appropriate to reduce radiation dose to as low as reasonably achievable. COMPARISON: CT 07/23/2013 FINDINGS: Abdomen: Moderately sized hiatal hernia is again noted. No adjacent edema. Liver:No focal lesions. No intrahepatic ductal distention. Gallbladder:Nondistended Pancreas:Within normal limits Spleen:Within normal limits Right kidney:No hydronephrosis. No focal lesion. Left kidney:No hydronephrosis. No focal lesion. Adrenal glands:Within normal limits Vascular structures:Within normal limits Pelvis: Small bowel:No significant distention. Appendix:Within normal limits Colon:No distention or acute pericolonic edema. No free intraperitoneal fluid or air. Bones: Degenerative facet arthropathy is noted in the lower lumbar spine. No acute bone findings. Bladder: Unremarkable. No pelvic mass or adenopathy. IMPRESSION: 1. No acute findings 2. Hiatal hernia as on prior exam.
[2019-01-06] MEDS ORDERED: DEXAMETHASONE SOD PHOS INJ 10 MG/1 ML VIAL IM ONE (23:09)
[2019-01-06] MEDS ORDERED: KETOROLAC TROMETHAMINE 60 MG/2 ML SDV IM ONE (23:09)
[2019-01-06] MEDS ORDERED: ONDANSETRON ODT 4 MG TAB (6 TAB/ER DISP) PO PRN (23:11)
--- NOTE | 2019-01-06 23:18 | ER Document Report ---
ED General - General Chief Complaint: Nausea/Vomiting Stated Complaint: BACK PAIN Time Seen by Provider: 01/06/19 19:00 Primary Care Provider: KYLER MORENO DO [Primary Care Provider] - Follow up in 3-5 days Mode of Arrival: Ambulatory Notes: Patient is a 53-year-old female who presents emergency department with a chief complaint of mid to low back pain with nausea and vomiting. She states that she is having back pain yesterday. States that has gotten progressively worse. She denies any new activity. She states that the pain is mainly in her back and she denies any specific abdominal pain. She denies any hematemesis. Denies diarrhea. She received Zofran and [place] in triage and states that she does not feel nauseous anymore, but she still does have pain. Past medical history includes hypertension, which she takes medication. TRAVEL OUTSIDE OF THE [place] IN LAST 30 DAYS: No - Related Data Allergies/Adverse Reactions: Penicillins Allergy (Severe, Verified 11/05/18 15:54) Shortness of Breath Past Medical History - General Information source: Patient - Social History Smoking Status: Never Smoker Family History: DM, Hypertension Patient has suicidal ideation: No Patient has homicidal ideation: No - Past Medical History Cardiac Medical History: Reports: Hx Hypertension Endocrine Medical History: Reports: Hx Diabetes Mellitus Type 2 Renal/ Medical History: Denies: Hx Peritoneal Dialysis GI Medical History: Reports: Hx Gastroesophageal Reflux Disease Past Surgical History: Reports: Hx Breast Surgery - reduction, Hx Section - x2, Hx Orthopedic Surgery - L foot, R Knee x 2 - Immunizations Hx Diphtheria, Pertussis, Tetanus Vaccination: - unk Review of Systems - Review of Systems Notes: REVIEW OF SYSTEMS: CONSTITUTIONAL : Denies recent illness. Denies recent unintentional weight loss. Denies fever, chills, or sweats. EENT: Denies eye, ear, throat, or mouth pain, discharge, or symptoms. Denies nasal or sinus congestion. CARDIOVASCULAR: Denies chest pain. RESPIRATORY: Denies shortness of breath, cough, congestion, difficulty breathing, or wheezing. GASTROINTESTINAL: See HPI GENITOURINARY: Denies difficulty urinating, burning, blood in urine, urgency or frequency. MUSCULOSKELETAL: See HPI SKIN: Denies rash, itchiness, or lesions HEMATOLOGIC : Denies easy bruising or bleeding. LYMPHATIC: Denies swollen, painful, enlarged glands. NEUROLOGICAL: Denies no numbness or tingling denies weakness. Denies headache. Denies altered mental status. Denies alteration in speech. PSYCHIATRIC: Denies stress, anxiety, alteration in sleep patterns, or depression. All other systems reviewed and negative. Physical Exam - Vital signs Vitals: Temp Pulse Resp BP Pulse Ox 98.4 F 108 H 20 150/76 H 96 01/06/19 18:40 01/06/19 18:40 01/06/19 18:40 01/06/19 18:40 01/06/19 18:40 - Notes Notes: PHYSICAL EXAMINATION: GENERAL: Appears well, healthy, well-nourished, no acute distress. HEAD: Normocephalic, atraumatic. EYES: PERRL, conjunctiva normal, all extraocular movements intact, sclera nonicteric ENT: Moist mucous membranes. NECK: Supple, no noticeable swelling, redness, rash. Normal range of motion. LUNGS: Equal breath sounds bilaterally and clear to auscultation. No wheezes rales or rhonchi. CARDIOVASCULAR: S1-S2, regular rate, regular rhythm. Radial pulses 2+, normal. ABDOMEN: Normoactive bowel sounds. Soft, generalized tenderness, no guarding, no rebound tenderness, and no masses palpated. EXTREMITIES: Normal strength and range of motion, no pitting or edema. No cyanosis. NEUROLOGICAL: Moves all extremities upon command. Strength 5/5 in all extremities. PSYCH: Normal mood, normal affect. SKIN: Warm, dry. No rash, lesions, ulcerations noted. Normal skin turgor. Course - Re-evaluation Re-evalutation: 01/06/19 Patient's hematology is unremarkable. Her chemistries and her lipase are all n ormal. Urinalysis is clear. It is unclear as to what the cause of her abdominal pain is. Patient's abdomen is obese, which makes physical exam difficult. She will be sent for a CT of the abdomen and pelvis to rule out any acute abdominal process. Patient CT of the abdomen and pelvis are negative for any acute findings. I suspect that her pain is actually back pain. She will be started on Toradol and I had a lengthy conversation with her about her weight and how her abdomen causing to her to have back pain. She will follow-up with her primary care provider in regards to this visit. I have also advised her to follow-up with a dietitian. She is in agreement with this plan. Verbal discharge instructions were given to the patient. They verbalized understanding. They are stable for discharge. - Vital Signs Vital signs: Temp Pulse Resp BP Pulse Ox 98.3 F 93 21 H 142/69 H 95 01/07/19 00:16 01/07/19 00:16 01/07/19 00:16 01/07/19 00:16 01/07/19 00:16 - Laboratory Result Diagrams: 01/06/19 19:22 01/06/19 19:22 Laboratory results interpreted by me: 01/06/19 01/06/19 19:22 19:22 WBC 13.3 H Hgb 10.4 L Hct 33.3 L MCV 68 L MCH 21.3 L MCHC 31.2 L RDW 19.4 H Glucose 181 H Discharge - Discharge Clinical Impression: Back pain Qualifiers: Back pain location: back pain in unspecified location Chronicity: acute Back pain laterality: bilateral Qualified Code(s): M54.9 - Dorsalgia, unspecified Condition: Stable Disposition: HOME, SELF-CARE Additional Instructions: You were seen today in the emergency department for low back pain, nausea and vomiting. Your CT scan was normal. You are being sent home with Zofran, medication for nausea. You can take 1 tablet every 4-6 hours as needed for nausea. You also received Decadron, steroid and Toradol, and anti-inflammatory medication to help with your pain. You are also being sent home with Toradol, medication to help with pain. You can take 1 tablet every 6 hours as needed for your pain. Please follow-up with your primary care provider. Since you have base privilege, there is a class called [employer]. See if you are able to register for that class. You can also follow-up with your primary care provider and was referred out to a dietitian. Prescriptions: Ketorolac Tromethamine [Toradol 10 mg Tablet] 10 mg PO Q6HP PRN #20 tablet PRN Reason: Referrals: KYLER MORENO DO [Primary Care Provider] - Follow up in 3-5 days
[2019-01-07 00:33] VITALS: BP 142/69
== END 2019-01-07 00:16 | disposition home or self-care (01) ==
LOC: ER 18:33
DX: M54.5 Low back pain (principal); R11.2 Nausea with vomiting, unspecified; R10.817 Generalized abdominal tenderness; E11.9 Type 2 diabetes mellitus without complications; I10 Essential (primary) hypertension; Z79.899 Other long term (current) drug therapy; Z88.0 Allergy status to penicillin; Z87.19 Personal history of other diseases of the digestive system
CPT/HCPCS: 99284; 96372; 96361; 36415; 83690; 85025; 80053; 81001; 74177; J1885; S0119; J7030; J1100

== ENCOUNTER 2019-04-08 08:37 | Emergency (ER) | payer OTHER ==
--- NOTE | 2019-04-08 09:40 | ER Document Report ---
ED Cardiac - General Chief Complaint: Chest Pain Stated Complaint: CHEST PAIN Time Seen by Provider: 04/08/19 09:38 Primary Care Provider: KYLER MORENO DO [Primary Care Provider] - Follow up as needed Notes: HPI: Patient is a 53-year-old female with past medical history as recorded who presents today with the onset around 5 to 6 days ago of some runny nose, congestion, and coughing. No fevers or vomiting. No calf pain or leg swelling above baseline. She states that the cough and congestion got somewhat better until last evening when she again developed bilateral nasal congestion and some "stuffiness". She states she had some anterior chest discomfort with coughing around 3:57 AM. She denies any radiation of the pain. She states that it is only when she is coughing or takes a deep breath. Patient does not smoke. Supposedly the patient had an uncle who had a heart attack in his 60s. Patient currently has no pain at this time. ROS: See HPI All other review of systems reviewed and otherwise negative Reviewed vital signs and nursing note as charted by RN. PHYSICAL EXAM: CONSTITUTIONAL: Alert and oriented and responds appropriately to questions. We patient has an active, nonproductive cough in the room HEAD: Normocephalic; atraumatic EYES: PERRL; Conjunctivae clear, sclerae non-icteric ENT: Normal nose; bilateral nonpurulent nasal rhinorrhea; moist mucous membranes; pharynx without lesions noted NECK: Supple without meningismus; non-tender; no cervical lymphadenopathy, no masses CARD: Regular rate and rhythm; no murmurs; symmetric distal pulses RESP: Normal chest excursion without splinting or tachypnea; active cough in the room; breath sounds clear and equal bilaterally; no wheezes, no rhonchi, no rales ABD/GI: Normal bowel sounds; non-distended; soft, non-tender; no palpable organomegaly or masses BACK: The back appears normal and is non-tender to palpation EXT: Normal ROM in all joints; non-tender to palpation; no edema SKIN: No acute lesions noted NEURO: CN 2-12 intact; 5/5 bilateral upper and lower extremity strength with sensation intact to light touch PSYCH: The patient's mood and manner are appropriate. Grooming and personal hygiene are appropriate. TRAVEL OUTSIDE OF THE [place] IN LAST 30 DAYS: No - Related Data Allergies/Adverse Reactions: Penicillins Allergy (Severe, Verified 04/08/19 08:39) Shortness of Breath Past Medical History - Social History Smoking Status: Former Smoker Family History: DM, Hypertension - Past Medical History Cardiac Medical History: Reports: Hx Hypertension Endocrine Medical History: Reports: Hx Diabetes Mellitus Type 2 Renal/ Medical History: Denies: Hx Peritoneal Dialysis GI Medical History: Reports: Hx Gastroesophageal Reflux Disease Past Surgical History: Reports: Hx Breast Surgery - reduction, Hx Section - x2, Hx Orthopedic Surgery - L foot, R Knee x 2 - Immunizations Hx Diphtheria, Pertussis, Tetanus Vaccination: - unk Physical Exam - Vital signs Vitals: Temp Pulse Resp BP Pulse Ox 98.0 F 102 H 20 142/60 H 96 04/08/19 08:41 04/08/19 08:41 04/08/19 08:41 04/08/19 08:41 04/08/19 08:41 Course - Re-evaluation Re-evalutation: Given the above history and physical examination, we will obtain a cardiac panel, EKG, x-ray of the chest, and reassess. Given the nasal congestion with the coughing, with the chest pain exacerbated by the coughing, with no history of coronary artery disease, with vital signs as recorded, I do believe pulmonary embolism and aortic dissection to be unlikely. I would like to x-ray the chest to evaluate for any obvious pneumonia. If the first troponin is unremarkable, we will most likely order a repeat troponin at the 3-hour tammy and reassess. Heart rate is currently 87 in the room. 04/08/19 09:39 EKG shows a heart of 102, sinus tachycardia, normal axis, no obvious ST elevation or depression. 04/08/19 14:01 Repeat troponin as recorded. Patient still has no chest pain. Vital signs are stable. Heart rate is 85. Satting 99% on room air. On re-auscultation, I still do not detect any wheezing. Continue nasal congestion. Normal BNP and repeat troponin. Given the above history and physical, patient will be discharged home with strict return precautions and follow-up with the primary care physician for possible cardiology referral and reassessment of the cough. - Vital Signs Vital signs: Temp Pulse Resp BP Pulse Ox 98.0 F 102 H 23 H 143/74 H 100 04/08/19 08:41 04/08/19 08:41 04/08/19 13:01 04/08/19 13:01 04/08/19 13:01 - Laboratory Result Diagrams: 04/08/19 09:45 04/08/19 09:45 Laboratory results interpreted by me: 04/08/19 04/08/19 09:45 09:45 WBC 11.3 H Hgb 10.5 L Hct 33.3 L MCV 69 L MCH 21.6 L MCHC 31.5 L RDW 18.9 H Est GFR (MDRD) Non-Af 58 L Glucose 171 H Discharge - Discharge Clinical Impression: Nasal congestion, Atypical chest pain, Cough Condition: Good Disposition: HOME, SELF-CARE Additional Instructions: Come back immediately for any increased cough, pain, fevers, leg swelling, or any other acute problems. Please follow-up with the primary care physician as discussed. Please take 2 puffs of the albuterol inhaler every 6 hours as needed for cough. Prescriptions: Albuterol Sulfate [Proair HFA Inhalation Aerosol 8.5 gm MDI] 2 puff IH Q6H PRN #1 mdi PRN Reason: Referrals: KYLER MORNEO DO [Primary Care Provider] - Follow up as needed
--- NOTE | 2019-04-08 09:54 | RADIOLOGY REPORT (SQ) ---
EXAM DESCRIPTION: CHEST SINGLE VIEW COMPLETED DATE/TIME: 04/08/2019 9:33 am REASON FOR STUDY: chest pain COMPARISON: 11/05/2018. FINDINGS: Seen in the chest AP portable upright. Cardiomegaly without failure. Clear lungs. Intact bones. TECHNICAL DOCUMENTATION: JOB ID: [id number] Reading location - IP/workstation name: [email or web address]
[2019-04-08 10:06] LABS: ABSOLUTE BASOPHILS # (AUTO) 0.1 10^3/uL (0.0-0.2); ABSOLUTE EOSINOPHILS # (AUTO) 0.2 10^3/uL (0.0-0.6); ABSOLUTE LYMPHOCYTES (AUTO) 3.5 10^3/uL (0.5-4.7); ABSOLUTE MONOCYTES (AUTO) 0.7 10^3/uL (0.1-1.4); ABSOLUTE NEUT (AUTO) 6.8 10^3/uL (1.7-8.2); BASOPHILS % (AUTO) 1.2 % (0-2); EOSINOPHILS % (AUTO) 1.9 % (0-6); HEMATOCRIT 33.3 % (36.0-47.0); HEMOGLOBIN 10.5 g/dL (12.0-15.5); LYMPHOCYTES % (AUTO) 30.6 % (13-45); MEAN CORPUSCULAR HEMOGLOBIN 21.6 pg (27.0-33.4); MEAN CORPUSCULAR HGB CONC 31.5 g/dL (32.0-36.0); MEAN CORPUSCULAR VOLUME 69 fl (80-97); MONOCYTES % (AUTO) 6.4 % (3-13); PLATELET COUNT 308 10^3/uL (150-450); RED BLOOD COUNT 4.85 10^6/uL (3.72-5.28); RED CELL DISTRIBUTION WIDTH 18.9 % (11.5-14.0); SEGMENTED NEUTROPHILS % (AUTO) 59.9 % (42-78); TOTAL CELLS COUNTED % (AUTO) 100 %; WHITE BLOOD COUNT 11.3 10^3/uL (4.0-10.5)
[2019-04-08 10:34] LABS: ALBUMIN 4.1 g/dL (3.5-5.0); ALKALINE PHOSPHATASE 111 U/L (38-126); ANION GAP 10 (5-19); ASPARTATE AMINO TRANSFERASE 22 U/L (14-36); BILIRUBIN,DIRECT 0.2 mg/dL (0.0-0.4); BILIRUBIN,TOTAL 0.4 mg/dL (0.2-1.3); BLOOD UREA NITROGEN 19 mg/dL (7-20); CALCIUM 9.4 mg/dL (8.4-10.2); CARBON DIOXIDE 27 mmol/L (22-30); CHLORIDE 101 mmol/L (98-107); CREATINE KINASE 81 U/L (30-135); GLUCOSE 171 mg/dL (75-110); POTASSIUM 4.1 mmol/L (3.6-5.0); TOTAL PROTEIN 7.1 g/dL (6.3-8.2)
[2019-04-08 10:47] LABS: TROPONIN I < 0.012 ng/mL
[2019-04-08] MEDS ORDERED: ASPIRIN 325 MG TABLET PO ONE (11:52)
[2019-04-08 14:40] VITALS: BP 112/53
--- NOTE | 2019-04-08 19:45 | EKG REPORT ---
SEVERITY:- ABNORMAL ECG - SINUS TACHYCARDIA PROBABLE LEFT ATRIAL ABNORMALITY PROBABLE LEFT VENTRICULAR HYPERTROPHY : Confirmed by: Sabine Sheikh MD 08-Apr-2019 19:45:31
== END 2019-04-08 14:47 | disposition home or self-care (01) ==
LOC: ER 08:37
DX: R05 Cough (principal); R07.89 Other chest pain; R09.81 Nasal congestion; J34.89 Other specified disorders of nose and nasal sinuses; R00.0 Tachycardia, unspecified; I10 Essential (primary) hypertension; E11.9 Type 2 diabetes mellitus without complications; Z88.0 Allergy status to penicillin
CPT/HCPCS: 36415; 71045; 80053; 82550; 82553; 83880; 84484; 85025; 93005; 93010; 99284